=== PATIENT | female | born 1970 ===

== ENCOUNTER → 2022-01-04 | Day surgery (SDC) | payer OTHER ==
[~2022-01-04] VITALS: Ht 157.5 cm; Wt 137.0 kg
[~2022-01-04] MED LIST: CALCIUM CITRAT200 MG PO; CARBAMAZEPINE200 MG PO; CETIRIZINE HCL10 MG PO; DILTIAZEM 12HR120 MG PO; EPINEPHRIN0.3 MG/0.3 IM; ESCITALOPRAM OX10 MG PO; FAMOTIDINE20 MG PO; KLOR-CON M2020 MEQ PO; LAMOTRIGINE200 MG PO; LASIX40 MG PO; METOPROLOL SUCC25 MG PO; MINOCYCLINE HC100 MG PO; PRAVASTATIN SOD10 M1 PO; PROAIR HFA8.5 GM INH; TOPIRAMATE100 MG PO; VITAMIN D21250 MCG PO
[2022-01-04 09:26] LABS: BASOPHIL 0.9 % (0-2); EOSINOPHIL 2.7 % (0-5); HCT 40.8 % (37.0-47.0); HGB 14.1 g/dl (12.5-16.0); LYMPHOCYTE 29.2 % (15-48); MCH 30.9 pg (25.0-31.0); MCHC 34.6 g/dL (32.0-36.0); MCV 89.3 fL (78.0-100.0); MONOCYTE 12.2 % (0-12); MPV 10.3 fL (6.0-9.5); NEUTROPHIL 54.7 % (41-80); NRBC 0; PLT 153 K/uL (150-400); RBC 4.57 M/uL (4.20-5.40); RDW 13.4 % (11.5-14.0)
[2022-01-04 09:49] LABS: ALBUMIN 3.7 g/dL (3.4-5.0); BILIRUBIN - TOTAL 0.7 mg/dL (0.2-1.0); BUN/CREAT RATIO (CALC) 17.2 RATIO; CREATININE 0.58 mg/dL (0.51-0.95); GLOBULIN (CALCULATION) 3.8 g/dL; POTASSIUM 4.2 mmol/L (3.5-5.1); TOTAL PROTEIN 7.5 g/dL (6.4-8.2)
== END | disposition home or self-care (01) ==
LOC: FAS 11-16 07:30
PROVIDERS: Oral & Maxillofacial Surgery
DX: K02.9 Dental caries, unspecified (principal); K04.7 Periapical abscess without sinus; E66.01 Morbid (severe) obesity due to excess calories; G40.909 Epilepsy, unspecified, not intractable, without status epilepticus; I10 Essential (primary) hypertension; F17.200 Nicotine dependence, unspecified, uncomplicated; Z68.43 Body mass index [BMI] 50.0-59.9, adult; Z88.0 Allergy status to penicillin; Z88.1 Allergy status to other antibiotic agents; Z88.2 Allergy status to sulfonamides; Z88.5 Allergy status to narcotic agent; Z88.8 Allergy status to other drugs, medicaments and biological substances; Z91.030 Bee allergy status; Z91.040 Latex allergy status
CPT/HCPCS: D7210 ×2; 36415; 80053; 85025; 93005; J1100; J2250; J2370; J2704; J3010; J7120